=== PATIENT | female | born 1975 | race Caucasian/White ===

== ENCOUNTER 2017-01-09 11:43 | Emergency (ER) | payer MEDICAID ==
--- NOTE | 2017-01-09 14:39 | ERPHSYRPT ---
- History of Present Illness Time Seen by Provider: 01/09/17 14:32 Source: patient Exam Limitations: no limitations Patient Subjective Stated Complaint: pt here for vaginal bleeding since yesterday, worse today with bright red bleeding,clots and cramps Triage Nursing Assessment: pt walked in ,resp easy, skin w/d pink. no distress Physician History: The patient is a spontaneous 1 at 5 weeks complaining of increasing vaginal bleeding since yesterday. Today she now has bright red blood and has abdominal cramping. She had a ultrasound done yesterday that showed an intrauterine gestational sac measuring 5 weeks 4 days. She called her primary care doctor today who requested that she come to the ER. Timing/Duration: yesterday Activites at Onset: none Quality: cramping Onset Location: suprapubic Pain Radiation: none Severity of Pain-Max: mild Severity of Pain-Current: mild Prior abdominal problems: none Sexual intercourse history: other () Modifying Factors: Improves With: nothing Associated Symptoms: denies symptoms Allergies/Adverse Reactions: No Known Drug Allergies Allergy (Unverified 01/09/17 13:27) Home Medications: Vits W-Ca,Fe,FA(<1Mg) [] 1 ea DAILY 01/09/17 [History] Hx Influenza Vaccination/Date Given: No Hx Pneumococcal Vaccination/Date Given: No - Review of Systems Constitutional: No Fever, No Chills Eyes: No Symptoms Ears, Nose, & Throat: No Symptoms Respiratory: No Cough, No Dyspnea Cardiac: No Chest Pain, No Edema, No Syncope Abdominal/Gastrointestinal: Abdominal Pain (cramping) Genitourinary Symptoms: No Dysuria Musculoskeletal: No Back Pain, No Neck Pain Skin: No Rash Neurological: No Dizziness, No Focal Weakness, No Sensory Changes Psychological: No Symptoms Endocrine: No Symptoms Hematologic/Lymphatic: No Symptoms Immunological/Allergic: No Symptoms All Other Systems: Reviewed and Negative - Past Medical History Pertinent Past Medical History: No Other Medical History: gravida4 para 2 - Past Surgical History Past Surgical History: Yes Female Surgical History: Section - Social History Smoking Status: Current every day smoker Exposure to second hand smoke: Yes Drug Use: none Patient Lives Alone: No - Female History Hx Last Menstrual Period: september 2016 Gestational Age: 8 - Nursing Vital Signs Nursing Vital Signs: Initial Vital Signs Temperature 97.9 F 01/09/17 13:21 Pulse Rate 87 10/18/17 13:21 Respiratory Rate 16 01/09/17 13:21 Blood Pressure 134/84 01/09/17 13:21 O2 Sat by Pulse Oximetry 98 01/09/17 13:21 Pain Scale Pain Intensity 0 - Physical Exam General Appearance: no apparent distress, alert Eye Exam: PERRL/EOMI, eyes nml inspection Ears, Nose, Throat Exam: normal ENT inspection, TMs normal, pharynx normal, moist mucous membranes Neck Exam: normal inspection, non-tender, supple, full range of motion Respiratory Exam: normal breath sounds, lungs clear, No respiratory distress Cardiovascular Exam: regular rate/rhythm, normal heart sounds, normal peripheral pulses Gastrointestinal/Abdomen Exam: soft, tenderness (suprapubic), No mass Pelvic Exam: not done Rectal Exam: not done Back Exam: normal inspection, normal range of motion, No CVA tenderness, No vertebral tenderness Extremity Exam: normal inspection, normal range of motion, pelvis stable Neurologic Exam: alert, oriented x 3, cooperative, prescription benefit specialist II-XII nml as tested, normal mood/affect, sensation nml, No motor deficits Skin Exam: normal color, warm, dry Lymphatic Exam: No adenopathy SpO2 Interpretation: normal SpO2: 94 Oxygen Delivery: Room Air Ordered Tests: Active Orders 24 hr Category Date Time Status BMP Stat Lab 01/09/17 15:00 Completed CBC W DIFF Stat Lab 01/09/17 15:00 Completed CULTURE,URINE Stat Lab 01/09/17 15:00 Received HCG, Quantitative (Inhouse) Stat Lab 01/09/17 15:00 Completed UA W/ MICROSCOPIC Stat Lab 01/09/17 15:00 Completed Lab/Rad Data: Laboratory Result Diagrams 01/09/17 15:00 01/09/17 15:00 Laboratory Results 01/09/17 01/09/17 01/09/17 Range/Units 15:00 15:00 15:00 WBC 7.0 (4.0-10.5) K/mm3 RBC 4.00 L (4.1-5.4) M/mm3 Hgb 12.6 (12.0-16.0) gm/dl Hct 37.7 (35-47) % MCV 94.3 (78-100) fl MCH 31.5 (26-32) pg MCHC 33.4 (32-36) g/dl RDW 11.8 (11.5-14.0) % Plt Count 317 (150-450) K/mm3 MPV 9.8 H (6-9.5) fl Gran % 71.2 H (36.0-66.0) % Lymphocytes % 21.1 L (24.0-44.0) % Monocytes % 6.9 (0.0-12.0) % Eosinophils % 0.7 (0.00-5.0) % Basophils % 0.1 (0.0-0.4) % Basophils # 0.01 (0-0.4) Sodium 138 (136-145) mEq/L Potassium 4.0 (3.5-5.1) mEq/L Chloride 102 (98-107) mEq/L Carbon Dioxide 26.7 (21-32) mEq/L Anion Gap 13.0 (5-15) MEQ/L BUN 9 (9-20) mg/dL Creatinine 0.59 (0.55-1.30) mg/dl Estimated GFR > 60 ML/MIN Glucose 91 (70-110) MG/DL Calcium 8.8 (8.5-10.1) mg/dL Beta HCG, Quant 2181 H (0-6) IU/L Ur Collection Type VOID Urine Color YELLOW (YELLOW) Urine Appearance CLEAR (CLEAR) Urine pH 7.0 (5-6) Ur Specific [place] 1.010 (1.005-1.025) Urine Protein NEGATIVE (Negative) Urine Ketones NEGATIVE (NEGATIVE) Urine Blood 250 (0-5) Wilfrido/ul Urine Nitrite NEGATIVE (NEGATIVE) Urine Bilirubin NEGATIVE (NEGATIVE) Urine Urobilinogen NORMAL (0-1) mg/dL Ur Leukocyte Esterase TRACE (NEGATIVE) Urine Microscopic RBC 0-2 (0-2) /HPF Urine Microscopic WBC 0-2 (0-5) /HPF Ur Epithelial Cells RARE (FEW) /HPF Urine Bacteria FEW (NEGATIVE) /HPF Urine Mucus SLIGHT (NEGATIVE) /HPF Urine Culture Reflexed YES (NO) Urine Glucose NEGATIVE (NEGATIVE) mg/dL Specimen Received 01/09/17 1500 - Progress Progress: unchanged Counseled pt/family regarding: lab results, diagnosis, need for follow-up - Departure Time of Disposition: 16:01 Departure Disposition: Home Clinical Impression: Threatened spontaneous Condition: Stable Critical Care Time: No Referrals: ASHLEY PEACE MD [Primary Care Provider] - Additional Instructions: You have a threatened spontaneous . Your bleeding may resolve or it may get worse and U will have an . At this time I cannot tell you with certainty what will happen. Follow-up on Saturday with your primary care provider for another quantitative hormone level. Today your hormone level was 2181.
[2017-01-09 15:02] LABS: BASOPHIL % 0.1 % (0.0-0.4); Eosinophil % 0.7 % (0.00-5.0); Granulocytes % 71.2 % (36.0-66.0); Lymphocytes % 21.1 % (24.0-44.0); Mean Cell Volume 94.3 fl (78-100); Mean Corpuscular Hemoglobin 31.5 pg (26-32); Mean Platelet Volume 9.8 fl (6-9.5); Monocytes % 6.9 % (0.0-12.0); Platelet Count 317 K/mm3 (150-450); Red Cell Distribution Width 11.8 % (11.5-14.0)
[2017-01-09 15:12] LABS: Bilirubin NEGATIVE (NEGATIVE); Blood 250 Ery/ul (0-5); Collection Type VOID; Glucose NEGATIVE (NEGATIVE); Leukocyte Esterase TRACE (NEGATIVE)
[2017-01-09 15:13] LABS: ADD URINE CULTURE? YES (NO); Bacteria FEW /HPF (NEGATIVE); COMPLETE URINE MICROSCOPIC? YES; Epithelial Cells RARE /HPF (FEW); Mucus SLIGHT /HPF (NEGATIVE); WBC 0-2 /HPF (0-5)
[2017-01-09 15:47] LABS: BLOOD UREA NITROGEN 9 mg/dL (9-20); CHLORIDE 102 mEq/L (98-107); Carbon Dioxide 26.7 mEq/L (21-32); Glucose 91 MG/DL (70-110); HCG, Quantitative (Inhouse) 2181 IU/L (0-6); SODIUM 138 mEq/L (136-145)
[2017-01-09 16:10] VITALS: BP 127/79; PULSE 65; O2SAT 97
== END 2017-01-09 16:12 | disposition home or self-care (01) ==
LOC: ED 11:43
DX: O20.0 Threatened abortion (principal); Z3A.01 Less than 8 weeks gestation of pregnancy
CPT/HCPCS: 36415; 80048; 81000; 84702; 85025; 87086; 99283